=== PATIENT | male | born 1960 | race Caucasian/White ===

== ENCOUNTER → 2019-11-21 17:05 | Outpatient (CLI) | payer OTHER, SELFPAY ==
--- NOTE | ~2019-11-21 | XR_ITS ---
XR hand LT min 3V, XR wrist LT min 3V 11/21/2019 17:20 Indication: Chronic left hand and wrist pain Procedure: 3 views left hand and 4 views left wrist Comparison: No prior studies for comparison. Findings: There is osteoarthritis of the first carpometacarpal joint. Normal mineralization. There is radial carpal joint space narrowing. No acute fracture or traumatic malalignment. No focal soft tiss ue abnormality. No radiopaque foreign bodies. Impression: 1: Mild-moderate polyarticular osteoarthritis. Reviewed, dictated and finalized at location A. TENDER Impression: 1: Mild-moderate polyarticular osteoarthritis. Impression: 1: Mild-moderate polyarticular osteoarthritis.
== END ==
PROVIDERS: Visit Provider Plastic Surgery
DX: M19.042 Primary osteoarthritis, left hand (principal); M19.032 Primary osteoarthritis, left wrist
CPT/HCPCS: 73110; 73130

== ENCOUNTER 2019-12-19 01:26 | Day surgery (SDC) | payer OTHER, SELFPAY ==
[2019-12-11 15:35] VITALS: BMI 28.0
--- NOTE | 2019-12-18 19:02 | HP_ITS ---
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 HISTORY: The patient is 59. He injured the digit 2 years ago, carrying 6 x 6 x 12 foot beam, this rolled over on to his thumb on a hard surface, hyperextending the thumb. He never received any treatment for that. Recently, an MRI was done and this shows possible contusion of the left thumb, carpometacarpal joint at the trapezium and base of the metacarpal. There is osteophyte production and noted also was at least a partial tear of the deep aspect of the anterior oblique ligament. Plain x-rays of the hand reveal joint space narrowing of the 1st carpometacarpal joint. As a solution to this, I have recommended a trapezium resection arthroplasty with an Arthrex internal brace and the patient is going to have this done. He is aware that there may be nerve injury and may be a slow recovery. There could be wound healing problems. He may need extended therapy and may not end up with supple joint that he is hoping for. ALLERGIES: HE HAS NO KNOWN ALLERGIES TO MEDICATIONS. MEDICATIONS: His current medications are Lexapro and lamotrigine. SURGICAL HISTORY: He has a history of tonsillectomy and Lasix surgery and a vasectomy. He is a nonsmoker. REVIEW OF SYSTEMS: There is some hearing loss. FAMILY HISTORY: Noncontributory. SOCIAL HISTORY: Lives in [place]. He works for the [employer]. PHYSICAL EXAMINATION: GENERAL: He is 5 feet 9 inches, weighs 200 pounds. He is in no acute distress. HEENT: Unremarkable. CHEST: Clear to auscultation. HEART: Regular rate and rhythm by palpation. ABDOMEN: Soft, nontender. EXTREMITIES: Normal with the exception of the area of the left thumb. There is some crepitus around the CMC joint. In that area, it is painful. ASSESSMENT: Left first carpometacarpal joint osteoarthritis with anterior obliques ligament tear. PLAN: Trapezium resection arthroplasty with Arthrex internal brace under general anesthesia. D I MT: [facility]
[2019-12-19] VITALS (9 sets, daily range): BP systolic 103–146; BP diastolic 61–89; PULSE 56–77; RESP 12–18; TEMP 36.5; O2SAT 92–99; BMI 29.0
--- NOTE | ~2019-12-19 | XR_ITS ---
EXAMINATION: XR surgery orthopedic EXAM DATE: 12/19/2019 12:54 INDICATION: Left trapezium resection. TECHNIQUE: Fluoroscopy used during orthopedic left hand surgery performed by Dr. Perry Cruz MD . The DAP for this procedure was 4.8 cGycm2. FINDINGS: Portable fluoroscopic images obtained during left-sided trapezium resection. Correlate wi th procedure note. IMPRESSION: Fluoroscopy used during XR surgery orthopedic. Reviewed, dictated and finalized at location B. ESTATE VALUER
[2019-12-19] MEDS: LACTATED RINGERS 1,000 ML 30 ML IV CONT (08:35)
--- NOTE | 2019-12-19 08:40 | WPDANESEPPF ---
Anes - Initial Pre Proc Eval Procedure: Operation Date: 12/19/19 10:00 Proposed Procedures p Left Trapezium Resection Arthroplasty With Arthrex Internal Brace - Perry Cruz MD Date/Time: 12/19/19 08:40 Surgeon: Perry Cruz MD Pre Op Diagnosis: Chronic Pain AC Arthritis Left First CMC Joint Patient Data Age: 59 Gender: M Height: 1.75 m Weight: 86.18 kg Allergies Allergy/AdvReac Type Severity Reaction Status Date / Time No Known Allergies Allergy Mild Unverified 12/11/19 15:36 Home Medications Medication Instructions Recorded Confirmed Type escitalopram oxalate 20 mg tablet 20 mg PO QPM 10/01/19 12/11/19 History lamotrigine 100 mg tablet 100 mg PO QPM 10/01/19 12/11/19 History multivitamin 1 tablet PO DAILY 10/01/19 12/11/19 History omega-3 fatty acids 1,000 mg 4,000 mg PO DAILY cap 10/01/19 12/11/19 History capsule Patient hx anesthesia problems: none Family hx anesthesia problems: none PMFSH Past Medical History Medical History (Updated 12/19/19 @ 08:41 by Augustine Lambert MD) Allergies Arthritis Depression Fractures HLD (hyperlipidemia) HTN (hypertension) Measles Mumps Overweight (BMI 25.0-29.9) Surgical History Surgical History (Updated 10/01/19 @ 09:44 by Mary Cabrera CMA) H/O vasectomy Hx of LASIK Family History Family History (Updated 10/01/19 @ 09:44 by Mary Cabrera CMA) Mother Breast cancer Sibling Hypertension HLD (hyperlipidemia) Social History Social History (Updated 10/01/19 @ 13:57 by Mary Cabrera CMA) Smoking status: Never smoker Alcohol intake: current Anes - Eval Final PreProcedure Day of Procedure 12/19/19 08:40 Patient weight: overweight Heart: regular rate and rhythm Lungs: clear to auscultation and normal air movement Airway: Mallampati scale class II Neurological: alert and oriented Last oral intake: >/= 8 hours ASA classification: II Emergent: no Anesthetic plan: proceed Anesthesia type and monitoring: general GIVS Informed Consent: The patient's anesthetic plan and its attendant risks and benefits were discussed with the patient/family/POA. Questions were solicited and answers provided to the satisfaction of the patient/family/POA.
--- NOTE | 2019-12-19 11:08 | WPDHPUPDATE1 ---
History and Physical Update Update Date/Time: 12/19/19 11:08 History and Physical has been reviewed, including an updated exam of the patient. There are NO changes in the patient's condition. Risks, benefits, and alternatives have been discussed and questions answered. Patient agrees to proceed with procedure.
[2019-12-19] MEDS: ceFAZolin 2 GM/D5W 50 ML 2 GM/50 ML BAG IVPB (11:15)
--- NOTE | 2019-12-19 11:29 | P.OPB_ITS ---
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 Implants: Arthrex InternalBrace Anesthesia: GETA Surgeon: Perry Cruz MD High [employer] Forming Equipment Operator: Annalisa Pathology: none sent Complications: No immediate complications Condition: stable Disposition: PACU
[2019-12-19] MEDS: LIDO 1%/EPINEPHRINE 1:100,000 20 ML VIAL INFILTRATE (11:51)
--- NOTE | 2019-12-19 13:11 | PM.PROC ---
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 Description of procedure: The site was marked in preop. The patient was taken to the operating room placed supine on the operating table. A time-out was held and confirmed. He was given general endotracheal anesthesia. The extremity was prepped and draped in the usual fashion. The site was marked for the incision with a typical Jones approach. The tourniquet was inflated to 250 mmHg. A the site was locally infiltrated with 1% lidocaine with epinephrine. The incision was made as marked and the dissection was carried through the subcutaneous tissue noting cutaneous nerves. Two were identified 1 held in 1 direction the other the other direction. The radial artery was identified eventually. The the trapezial metacarpal joint was identified and the capsule incised longitudinally. Great deal of white synovitis type tissue was identified and trimmed away. The a specimens sent to pathology. With sharp and blunt dissection and the use of a osteotome and rongeur the trapezium was resected entirely. This was confirmed with C-arm image. The Arthrex internal brace was applied after identification of the radial base facet of the 2nd metacarpal. The C-wire was placed and the site confirmed with the C-arm image. The hole was over-drilled and the anchor was inserted. The 2nd hole was drilled across the base of the 1st metacarpal. And that anchor inserted over the bracing material. The capsule was repaired with 3-0 Vicryl suture the extensor tendons were not repositioned. The skin was closed with a running 5 0 nylon. Eight cc of 0.5% Marcaine plain were instilled into the cavity and in the subcutaneous tissue surrounding the incision. The usual bandage with a thumb spica splint was applied the patient is discharged from the operating room stable condition. The estimated blood loss was 15 milliliter. He was given 2 g of Ancef preop. The total tourniquet time was 70 minutes. Is being discharged home with instructions in wound care follow-up and a prescription for hydrocodone . Surgeon: Perry Cruz MD
--- NOTE | 2019-12-19 13:24 | SUR.PHASEI ---
1324: Report given to ANAM Gambino.
== END 2019-12-19 14:45 | disposition home or self-care (01) ==
PROVIDERS: PCP Internal Medicine; Visit Provider Plastic Surgery
PROC: (CPT 25447; principal; 2019-12-19 10:00)
DX: M18.12 Unilateral primary osteoarthritis of first carpometacarpal joint, left hand (principal); I10 Essential (primary) hypertension; E78.5 Hyperlipidemia, unspecified; F32.9 Major depressive disorder, single episode, unspecified
CPT/HCPCS: 25447; 88305; A9270; J0690; J1100; J1170; J2250; J2405; J2704; J3010; J7120

== ENCOUNTER 2020-01-05 10:02 | Emergency (ER) | payer OTHER, SELFPAY ==
[2020-01-05 10:16] VITALS: BP 143/100; PULSE 62; RESP 16; TEMP 36.7; O2SAT 99
--- NOTE | 2020-01-05 10:20 | ED.URI ---
HPI - URI/Sore Throat General Chief Complaint: Upper Respiratory Infection Stated Complaint: sinus congestion Time Seen by Provider: 01/05/20 10:20 Source: patient and RN notes reviewed History of Present Illness HPI Narrative: Patient is a 59-year-old male that presents the urgent care with complaints of sinus congestion and pressure for 4 days. Patient states he has not taken anything [id number] with the exception of 1 dose of ibuprofen. Patient states he has a lot of postnasal drainage which sometimes causes a sore throat. Patient denies any known fever, nausea, vomiting. Denies any coughing. Denies any history of sinus surgery or chronic sinusitis. No other acute complaints. No acute distress noted. Patient read the plan of care. Related Data Home Medications Medication Instructions Recorded Confirmed escitalopram oxalate 20 mg tablet 20 mg PO QPM 10/01/19 01/05/20 lamotrigine 100 mg tablet 100 mg PO QPM 10/01/19 01/05/20 multivitamin 1 tablet PO DAILY 10/01/19 01/05/20 omega-3 fatty acids 1,000 mg 4,000 mg PO DAILY cap 10/01/19 01/05/20 capsule Allergies Allergy/AdvReac Type Severity Reaction Status Date / Time No Known Allergies Allergy Mild Unverified 12/11/19 15:36 Review of Systems Review of Systems: Narrative: CONSTITUTIONAL: Denies fever, chills, or sweats. EYES: Denies visual changes, redness, or discharge. ENT: Reports of sinus pressure, congestion, mild sore throat and postnasal drainage CARDIOVASCULAR: Denies chest pain, palpitations, or edema. RESPIRATORY: Denies cough or dyspnea. GASTROINTESTINAL: Denies abdominal pain, nausea, vomiting, or diarrhea. GENITOURINARY: Denies dysuria or hematuria. SKIN: Denies rash or itching. MUSCULOSKELETAL: Denies back pain, joint pain, or myalgia. NEUROLOGIC: Denies headache, numbness, or weakness. All other systems reviewed are negative, except as documented in HPI. [facility] Past Medical History Medical History (Updated 01/05/20 @ 10:58 by SUNNY Khan) Allergies Arthritis Depression Fractures HLD (hyperlipidemia) HTN (hypertension) Measles Mumps Overweight (BMI 25.0-29.9) Surgical History Surgical History (Updated 10/01/19 @ 09:44 by Mary Cabrera CMA) H/O vasectomy Hx of LASIK Family History Family History (Updated 10/01/19 @ 09:44 by Mary Cabrera CMA) Mother Breast cancer Sibling Hypertension HLD (hyperlipidemia) Social History Social History (Updated 10/01/19 @ 13:57 by Mary Cabrera CMA) Smoking status: Never smoker Alcohol intake: current Comments At the time of my signature, I reviewed and agree with the nursing past medical, surgical, social, and family history. There is no relevant family history pertinent to the patient complaint. Exam Narrative: Exam Narrative: GENERAL: This is a well-nourished, well-developed patient, in no apparent distress. HEAD: normocephalic, atraumatic. Mild frontal sinus tenderness EYES: PERRL. Sclera clear/white. Vision is grossly intact. EARS: External ears normal, auditory canals clear and without drainage, TMs normal without perforation. Hearing grossly intact. NOSE: External nose normal with no obvious nasal discharge, nares without redness, no rhinorrhea. THROAT: Mucous membranes moist, posterior pharynx clear. Moderate postnasal drainage NECK: Neck supple CARDIOVASCULAR: Regular rate and rhythm without murmurs, gallops, or rubs. RESPIRATORY: Clear to auscultation. Breath sounds equal bilaterally. No wheezes, rales, or rhonchi. SKIN: warm, intact with no suspicious lesions or rash, good texture and turgor. NEURO: awake, alert, and oriented to person, place and time. There were no obvious focal neurologic abnormalities. EXTREMITIES: No clubbing, cyanosis, or edema. Course Vital Signs Vital signs: Vital Signs Temperature 98.1 F 01/05/20 10:16 Pulse Rate 62 01/05/20 10:16 Respiratory Rate 16 01/05/20 10:16 Blood Pressure 143/100 H 01/05/20 1
== END 2020-01-05 11:04 | disposition home or self-care (01) ==
PROVIDERS: Emergency Provider Nurse Practitioner Family; PCP Internal Medicine
DX: J32.9 Chronic sinusitis, unspecified (principal); M19.90 Unspecified osteoarthritis, unspecified site; F32.9 Major depressive disorder, single episode, unspecified; E78.5 Hyperlipidemia, unspecified; I10 Essential (primary) hypertension; Z98.52 Vasectomy status
CPT/HCPCS: 99213; G0463

== ENCOUNTER 2020-03-19 08:00 | Outpatient (RCR) | payer OTHER, SELFPAY ==
--- NOTE | 2020-01-07 10:21 | OTOPEVAL ---
OCCUPATIONAL THERAPY INITIAL EVALUATION 01/07/2020 Thank you for referring this patient to [facility]. Amador will benefit from skilled hand therapy 1x/week for 6 weeks for deficits outlined below. Please review, sign, date and return this plan of care DAVID. I agree with and certify that the following plan of care is medically necessary. Referring Physician Date Admitting Provider: Attending Provider: Perry Cruz MD Referring Provider: *OT Outpatient Evaluation Start: 01/07/20 08:40 Freq: Status: Active Protocol: Document 01/07/20 08:41 JOSSY (Rec: 01/07/20 10:20 JOSSY [email or web address]) Therapy Assessment Status Assessment Status Assessment Status Evaluation Outpatient Past Medical History Neurological History Hx Neurological Disorders No Significant History Cardiovascular History Hx Hypertension Yes Respiratory History Hx Respiratory Disorders No Significant History Gastrointestinal History Hx Gastrointestinal Disorders No Significant History Genitourinary History Hx Genitourinary Disorders No Significant History Musculoskeletal History Hx Arthritis Yes: LEFT FIRST CMC JOINT Hx Fractures Yes: L TIBIA Hematological History Hx Hematological Disorders No Significant History Endocrine History Hx Endocrine Disorders No Significant History HEENT History Hx Sinus Problems Yes: IMPROVED WITH ALLERGY SHOTS Hx Other HEENT Disorders Yes: BARROW- BILATERAL HEARING AIDS Integumentary History Hx Skin Disorders No Significant History Reproductive History Hx Other Reproductive Disorders Yes: VASECTOMY Psychosocial History Hx Depression Yes Pain History History of Any Previous or Ongoing No Significant History Instance of Pain Anesthesia History Hx Anesthesia Reactions No Significant History Evaluation Information Problem Diagnosis s/p (L) trapezium resection with Arthrex internal brace Onset 12/19/19 Subjective Information Amador reports that he began Query Text:As Reported By Patient/ weaning himself off the brace Family 2 weeks ago and has gone completely without it since 01/03/20. 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 Patient has been using compensatory techniques (1-handed) for dishes, buttons,
--- NOTE | 2020-02-19 09:12 | OTOPEVAL ---
OCCUPATIONAL THERAPY RE-EVALUATION AND PROGRESS REPORT 02/19/2020 Continued skilled OT indicated for ROM and strength deficits outlined below. MCP stiffness and thenar group weakness are causing suboptimal mechanics of the thumb with functional pinching. Continued OT indicated 1x/week for 4 additional weeks. Thank you for referring Amador Ochoa to [facility]. Please review, sign, date and return this plan of care DAVID. I agree with and certify that the following plan of care is medically necessary. Referring Physician Date Admitting Provider: Attending Provider: Perry Cruz MD Referring Provider: *OT Outpatient Re-Evaluation Evaluation Information Problem Diagnosis s/p (L) trapezium resection with Arthrex internal brace Onset 12/19/19 Additional Evaluation Detail Amador has been participating in outpatient hand therapy 1x/ week for 6 weeks. He is very compliant with all materials. Therapy has been focusing on AROM, PROM, and strengthening of the left wrist, hand, and thumb. Subjective Information Amador notes great improvement Query Text:As Reported By Patient/ in ROM and flexibility. He Family states that he still feels weak, however. For instance, he is unable to pinch a nail clipper with the left, shuffle a deck of cards, and use a lateral pinch to continuous pickling line pickler helper a stack of dinner plates. He does report increased use of the L hand with doing buttons, tying shoes, tying a tie, dishes, and turning door knobs. Pain Assessment Timing of Pain Assessment Timing of Pain Assessment Re-assessment Pain Scale Pain Scale Used Numeric (1 - 10) Self Report Pain Assessment Left Hand(s) Reported Pain Level 0 Lowest Pain Intensity 0 Greatest Pain Intensity 5 Other Pain Aggravating Factors Pinching, especially anything with weight or force Pain Relief Interventions Used By Exercise Patient Pain Score Pain Score 0: Self Report Upper Extremity Range of Motion Elbow/Forearm Range of Motion Left Forearm Supination - Active 85 Forearm Pronation - Active 85 Elbow/Forearm Range of Motion Comments Elbow flex/ext is WNL. (L) forearm AROM is symmetrical to the (R). Wrist Range of Motion Left Wrist Flexion - Active
--- NOTE | 2020-03-19 08:59 | OTOPEVAL ---
OCCUPATIONAL THERAPY DISCHARGE NOTE 03/19/2020 Amador has improved to normal limits with ROM and has made excellent progress with functional strength. Although he has some limitations with strength, he is independent with all strengthening materials and plans to continue to work on strengthening with graded resistive putty. No further skilled OT is indicated at this time. Thank you for this referral. Thank you for referring Amador Ochoa to [facility]. Please review, sign, date and return this D/C Note DAVID. I agree with and certify that the following plan of care is medically necessary. Referring Physician Date Referring Provider: ePrry Cruz MD *OT Outpatient Re-Evaluation & D/C Therapy Assessment Status Assessment Status Discharge Evaluation Information Diagnosis s/p (L) trapezium resection with Arthrex internal brace Onset 12/19/19 Additional Evaluation Detail Amador has been participating in outpatient hand therapy 1x/ week for 10 weeks. The past month has been focusing on strengthening and mechanics during functional pinching. Subjective Information Amador notes great improvement Query Text:As Reported By Patient/ in ROM, flexibility, and Family strength. He states that he still feels weak, particularly in pinching and gripping. For instance, he is unable to pinch a nail clipper with the left hand. He does note improvement with being able to greens picker a stack of dinner plates. Pain Assessment Timing of Pain Assessment Timing of Pain Assessment Re-assessment Pain Scale Pain Scale Used Numeric (1 - 10) Self Report Pain Assessment Left Hand(s) Reported Pain Level 0 Other Pain Description 0 Lowest Pain Intensity 0 Greatest Pain Intensity 4 Other Pain Aggravating Factors PROM, pinching Pain Score Pain Score 0: Self Report Upper Extremity Range of Motion Wrist Range of Motion Left Wrist Flexion - Active 65 Wrist Flexion - Passive 70 Wrist Extension - Active 75 Wrist Radial Deviation - Active 15 Wrist Radial Deviation - Passive 20 Wrist Ulnar Deviation - Active 40 Wrist Range of Motion Comments ROM measurements of the wrist remained unchanged since last re-evaluation. Measurements are WFL. Finger Range of Motion Left Reason Not Measured WNL/Left Thumb Range of Motion Left Thumb MCP Flexion - A
== END 2020-03-19 11:03 | disposition home or self-care (01) ==
LOC: ANHOT 08:00
PROVIDERS: PCP Internal Medicine; Visit Provider Plastic Surgery
DX: Z47.89 Encounter for other orthopedic aftercare (principal)
CPT/HCPCS: 97018; 97035; 97110; 97140; 97165; 97535

== ENCOUNTER 2025-05-30 15:24 | Outpatient (CLI) | payer OTHER, SELFPAY ==
--- OUTSIDE RECORDS SUMMARY | 2025-05-30 15:32 | XMS_ITS | Clinical Summary ---
Author Organization [facility] Address [address] [place] [id number] Care Team Providers Care Specimen Transporter Name Role Phone Unavailable Primary Care Provider Unavailabl e Social History Tobacco Use Types Packs/Day Years Used Date Smoking Tobacco: Never Assessed Sex and Gender Information Value Date Recorded Sex Assigned at Not on file Legal Sex Male 8:09 PM CDT Gender Identity Not on file Sexual Orientation Not on file Plan of Treatment Health Maintenance Due Date Last Done Comments Colorectal Cancer Screening Colonoscopy (10 Years) 1961 Annual Physical 1964 Hepatitis C 1979 DTaP, Tdap and Td Vaccines ( 1 - Tdap) 1980 Pneumococcal Vaccine: 50+ Ye ars (1 of 1 - PCV) 2011 Zoster Vaccines (1 of 2) 2011 COVID-19 Vaccine ( - 2023-2 5 season) 2024 RSV Immunization or 60+ Years (1 - 1-dose 75+ series) 2036 Meningococcal B Vaccine Aged Out No l onger eligible based on patient's age to complete this topic Meningococcal Vaccine Aged Out No cleo valdemar eligible based on patient's age to complete this topic RSV Immunizations Under 20 Months Aged Out No longer eligible based on patient's age to complete this topic
--- OUTSIDE RECORDS SUMMARY | 2025-05-30 15:32 | XMS_ITS | Clinical Summary ---
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 Role Phone Unavailable Primary Care Provider Unavailabl e Allergies No known active allergies Medications fish oil-dha-epa 1,200-144-216 mg capsule Take by mouth Active multivitamin capsule Take 1 capsule by mouth daily Active coenzyme Q10 200 mg capsule Take 1 capsule (200 mg total) by mouth daily Active loratadine (CLARITIN) 10 mg tablet Take 1 tablet (10 mg total) by mouth daily Active tamsulosin (FLOMAX) 0.4 mg extended release capsuleIndications: Benign prostatic hyperplasia with urinary frequency Take 1 capsule (0.4 mg total) by mouth daily 30 capsule 5 Active atorvastatin (LIPITOR) 20 mg tabletIndications:H yperlipidemia, unspecified hyperlipidemia type Take 1 tablet (20 mg total) by mouth nightly 90 tablet 1 5 Active Active Problems Problem Noted Date Diagnosed Date Recurrent major depressive disorder, in remissio n 04/10/2025 Assessment & Plan (04/10/2025 10:22 AM CDT): He was diagnosed w/ bipolar approximately in 2006. The patient states that he has a had manic episode to his knowledge He does endorse depression on and off throughout his life Has been off meds for 2 years, lexapro and lamictal History of recurrent SI 40+ years ago as a child. Denies SI. Denies anhedonia We will go off his medications and see how he does. He works in [employer]. He knows to reach out to us if he has any problems. Risk stratification done, low risk, 988 discussed Seasonal allergies 04/10/2025 Assessment & Plan (04/10/2025 7:52 AM CDT): Claritin 10mg Hyperlipidemia, unspecified 04/10/2025 Assessment & Plan (04/10/2025 10:22 AM CDT): Severe LDL elevation 2021 He has changed his diet significantly I will decrease his atorvastatin to 20 mg Elevated PSA 04/10/2025 Assessment & Plan (04/10/2025 10:22 AM CDT): The patient does not have any concerning systemic symptoms at this time. Given the substantial increase over the last 2 years however, we will refer him to Urology for further considerations. Latest Reference Range & Units 04/05/23 16:42 04/09/25 07:17 PSA <=5.40 ng/mL 1.74 8.46 (H) (H): Data is abnormally high Orders: tamsulosin (FLOMAX) 0.4 mg extended release capsule; Take 1 capsule (0.4 mg total) by mouth daily Ambulatory referral to Urology; Future No family history. Pretty significant hike. Asymptomatic His weight loss is explained by lifestyle changes. Benign prostatic hyperplasia with urinary freque ncy 04/10/2025 Assessment & Plan (04/10/2025 10:22 AM CDT): The patient does not have any concerning systemic symptoms at this time. Given the substantial increase over the last 2 years however, we will refer him to Urology for further considerations. Latest Reference Range & Units 04/05/23 16:42 04/09/25 07:17 PSA <=5.40 ng/mL 1.74 8.46 (H) (H): Data is abnormally high Orders: tamsulosin (FLOMAX) 0.4 mg extended release capsule; Take 1 capsule (0.4 mg total) by mouth daily Ambulatory referral to Urology; Future No family history. Pretty significant hike. Asymptomatic His weight loss is explained by lifestyle changes. Sensorineural hearing loss (SNHL) 04/17/2024 Encounters Date Type Department Care Team Description 05/21/[address] [phone] Maddi Padron MD Referral Request 05/08/2025 7:[address] [facility] [address] [place] [phone] Benign prostatic hyperplasia with urinary frequency; Elevated PSA; Hyperlipidemia, unspecified hyperlipidemia type 05/08/2025 Results Follow-Up [address] [phone] Michelle Bradford LPN PSA diagnostic, Lipid panel 04/21/[address] [phone] Flip Arriaga MD 04/10/2025 7:30 AM CDT Office Visit [address] [phone] Jed Barros MD Recurrent major depressive disorder, in remission (Primary Dx); Benign prostatic hyperplasia with urinary frequency; Elevated PSA; Hyperlipidemia, unspecified hyperlipidemia type; Seasonal allergies 04/10/2025 Letter (Out) [address] [phone] 04/09/2025 7:[address] [facility] [address] [place] [id number] Benign prostatic hyperplasia with urinary frequency; Hyperlipidemia, unspecified hyperlipidemia type; Screening for deficiency anemia 04/09/2025 Results Follow-Up [address] [phone] Sandra Ceballos PA PSA screen, Lipid panel, Comprehensive metabolic panel, Additional followed-up results: 3 from Last 3 Months Immunizations Immunization Administration Dates Next Due Influenza, Quadrivalent, Sussy l Culture-based MDCK, Preservative Free, Antibiotic Free, Intramuscular 08/07/2022 Influenza, Quadrivalent, Spl it, Preservative Free, Intramuscular 11/10/2021,08/22/2020 Influenza, Trivalent, Preser vative Free, Intramuscular 07/20/2024 Influenza, Unspecified 10/03/2023(Deferr ed: Patient Refused),07/23/2021 Moderna SARS-CoV-2 Monovalen t Vaccination (12+ YRS) 09/27/2021,09/27/2021 Tdap 03/30/2023 ZOSTER Recombinant 08/07/2022,04/07/2022 Surgical History Surgery Date Site/Laterality Comments TONSILLECTOMY 10/23/1962 - 10/22/1963 VASECTOMY 10/23/2000 - 10/22/2001 HAND SURGERY 10/23/2019 - 10/22/2020 MARCELL Medical History Medical History Date Comments Arthritis Hearing aid worn Plantar fasciitis Pneumonia Family History Medical History Relation Name Comments No Known Problems Brother 1 Diabetes Brother 2 Jarek Ochoa Hypertension Brother 2 Jarek Ochoa Obesity Brother 2 Jarek Ochoa Cancer Maternal Grandfather Perry Aliyah Leena Hypertension Maternal Grandfather Perry Aliyah Leena Cancer Maternal Grandmother Treva [place] Hypertension Maternal Grandmother Treva [place] Breast cancer Mother Cori Mishra Leena Cancer Mother Cori Mishra Leena Cataracts Paternal Grandmother Relation Name Status Comments Brother 1 Alive Brother 2 Jarek Ochoa Alive Father Maternal Grandfather Perry [place] Leena Maternal Grandmother Treva [place] Leena Mother Cori Mishra Leena Paternal Grandfather Paternal Grandmother Social History Tobacco Use Types Packs/Day Years Used Date Smoking Tobacco: Never Smokeless Tobacco: Never Tobacco Cessation:Counseling Given: Not Answered AUDIT-C Answer Date Recorded Q1: How often do you have a drink containing alc ohol? 2-4 times a month 04/10/2025 Q2: How many drinks containi ng alcohol do you have on a typical day when you are drinking? 1 or 2 04/10/2025 Q3: How often do you have si x or more drinks on one occasion? Never 04/10/2025 PHQ-2 Answer Date Recorded PHQ-2 Total Score (If total score is 3 or more points, staff should administer the PHQ-9) 0 04/10/2025 Sex and Gender Information Value Date Recorded Sex Assigned at Not on file Legal Sex Male 1:53 PM [employer] Gender Identity Not on file Sexual Orientation Not on file Obstetrics History Last Filed Vital Signs Vital Sign Reading Time Taken Comments Blood Pressure 118/80 04/10/2025 7:14 AM CDT Pulse 61 04/10/2025 7:14 AM CDT Temperature 36.6 C (97.9 F) 04/10/2025 7:14 AM CDT Respiratory Rate 16 04/10/2025 7:14 AM CDT Oxygen Saturation 98% 04/10/2025 7:14 AM CDT Inhaled Oxygen Concentration - - Weight 81.4 kg (179 lb 8 oz) 04/10/2025 7:14 AM CDT Height 175.3 cm (5' 9.02) 04/10/2025 7:14 AM CD T Body Mass Index 26.5 04/10/2025 7:14 AM CDT Plan of Treatment Health Maintenance Due Date Last Done Comments Hepatitis B Screening 1978 Regular Well Visit/Exam 18-64 06/05/2025 06/05/2024, 06/05/2024, 04/11/2023, Additional history exists Influenza Vaccine (#1) 2025 , 08/07/2022, 11/10/2021, Additional history exists Depression Screening 04/10/2026 04/10/2025, 12/09/2024, 06/05/2024, Additional history exists Colon Cancer Screening-Colonoscopy 12/13/2026 12/13/2021 Prostate Cancer Screening-PSA 05/08/2027 05/08/2025, 04/09/2025, 04/05/2023, Additional history exists DTaP/Tdap/Td Vaccine (2 - Td or Tdap) 03/30/2033 03/30/2023 Zoster Vaccine Completed 08/07/2022, 04/07/2022 Hepatitis C Screening Completed 04/05/2023 Covid-19 Vaccine Completed 07/20/2024, 01/2023, 04/07/2022, Additional history exists Pneumococcal vaccine <65 Aged Out No longer eligible based on patient's age to complete this topic Procedures Procedure Name Priority Date/Time Associated Diagnosis Comments LIPID PANEL Routine 05/08/2025 7:26 AM CDT Hyperlipidemia, unspecified hyperlipidemia type PSA DIAGNOSTIC Routine 05/08/2025 7:26 AM CDT Benign prostatic hyperplasia with urinary frequency Elevated PSA EGFR Routine 04/09/2025 7:17 AM CDT Hyperlipidemia, unspecified hyperlipidemia type DIFFERENTIAL AUTO Routine 04/09/2025 7:1 7 AM CDT Screening for deficiency anemia CBC WITH AUTO DIFFERENTIAL Routine 04/09/2025 7:17 AM CDT Screening for deficiency anemia COMPREHENSIVE METABOLIC PANEL Routine 04/09/2025 7:17 AM CDT Hyperlipidemia, unspecified hyperlipidemia type LIPID PANEL Routine 04/09/2025 7:17 AM CDT Hyperlipidemia, unspecified hyperlipidemia type PSA SCREEN Routine 04/09/2025 7:17 AM CDT Benign prostatic hyperplasia with urinary frequency HEPATITIS C ANTIBODY Routine 04/05/2023 4:42 PM CDT Need for hepatitis C screening test COLONOSCOPY Routine 12/13/2021 from Last 3 Months or Most Recently Relevant to Health Maintenance Results * (ABNORMAL) PSA diagnostic (05/08/2025 7:26 AM CDT) PSA-Total 9.01(H) <=5.40 ng/mL Comment: Interpretive Data AGE SEX REFERENCE INTERVAL 0 minutes-150 years Female None 0 minutes-49 years Male None 50-59 years Male 0-3.90 60-69 years Male 0-5.40 70-79 years Male 0-6.20 80-150 years Male 0-6.20 The Ivonne PSA Total assay procedure was used. Results from different manufacturers or methods may not be comparable. Serial testing should be performed using the same method. Current interpretive data last revised 22. Testing performed by: [facility], [address] [place] [address]., [id number] Blood 05/08/2025 7:26 AM CDT 05/08/2025 8:06 AM CDT us Jed Barros MD LAB BLOOD ORDERABLES Final Re sult GAEL PETERSON [address] [facility] Department [place] [address] * Lipid panel (05/08/2025 7:26 AM CDT) Cholesterol 125 30 - 199 mg/dL Comment: Interpretive Data Ages < or = 19 years Acceptable: <170 mg/dL Borderline high: 170-199 mg/dL High: >or= 200 mg/dL Ages > or = 20 years Desirable: <200 mg/dL Borderline high: 200-239 mg/dL High: >or= 240 mg/dL Literature References: 1. Expert Panel on Integrated Guidelines for Cardiovascular Health and Risk Reduction in Children and Adolescents. Pediatrics 2011;128:S213 2. NCEP Expert Panel. Circulation 2004;110:227 Current Interpretive Data was last revised on 2018. Testing performed by: [address] [address] Triglycerides 59 <=149 mg/dL GAEL Comment: Interpretive Data Ages < or = 9 years Acceptable: <75 mg/dL Borderline high: 75-99 mg/dL High: >or= 100 mg/dL Ages 10 to 20 years Acceptable: <90 mg/dL Borderline high: 90-129 mg/dL High: >or= 130 mg/dL Ages > or = 20 years Desirable: <150 mg/dL Borderline high: 150-199 mg/dL High: 200-499 mg/dL Very high: >or= 499 mg/dL Literature References: 1. Expert Panel on Integrated Guidelines for Cardiovascular Health and Risk Reduction in Children and Adolescents. Pediatrics 2011;128:S213 2. NCEP Expert Panel. Circulation 2004;110:227 Current Interpretive Data was last revised on 2018. Testing performed by: [address] [address] HDL 56 >=40 mg/dL GAEL Comment: Interpretive Data Ages < or = 19 years Acceptable: >45 mg/dL Borderline low: 40-45 mg/dL Low: <40 mg/dL Ages > or = 20 years Desirable: >or= 60 mg/dL Low: <40 mg/dL Literature References: 1. Expert Panel on Integrated Guidelines for Cardiovascular Health and Risk Reduction in Children and Adolescents. Pediatrics 2011;128:S213 2. NCEP Expert Panel. Circulation 2004;110:227 Current Interpretive Data was last revised on 2018. Testing performed by: [address] [address] LDL, calculated 56 <=129 mg/dL GAEL Comment: Interpretive Data Ages < or = 19 years Acceptable: <110 mg/dL Borderline high: 110-129 mg/dL High: >or= 130 mg/dL Ages > or = 20 years Optimal: <100 mg/dL Near optimal: 100-129 mg/dL Borderline high: 130-159 mg/dL High: >160 mg/dL Calculated using the Jovan LDL-C estimating equation. This equation was implemented on 2024. Prior to this date LDL-C was estimated using the Friedewald equation. Literature References: 1. Expert Panel on Integrated Guidelines for Cardiovascular Health and Risk Reduction in Children and Adolescents. Pediatrics 2011;128:S213 2. NCEP Expert Panel. Circulation 2004;110:227 3. Jovan Lorenz al. KOBI Cardiol. 2019February 20;5(5):540-548. doi: 10.1001/jamacardio.2020.0013 Current Interpretive Data was last revised on 2024. Testing performed by: [address] [address] Non-HDL Cholesterol 69 mg/dL GAEL Comment: Interpretive Data Ages < or = 19 years Acceptable: <120 mg/dL Borderline high: 120-144 mg/dL High: >145 mg/dL Ages > or = 20 years When triglycerides are >200 mg/dL, Non-HDL cholesterol is a secondary target of therapy with treatment goals that are 30 mg/dL greater than the LDL cholesterol target. Literature References: 1. Expert Panel on Integrated Guidelines for Cardiovascular Health and Risk Reduction in Children and Adolescents. Pediatrics 2011;128:S213 2. NCEP Expert Panel. Circulation 2004;110:227 Current Interpretive Data was last revised on 2018. Testing performed by: [facility], [address] [place] [address]., [address] Chol/HDL ratio 2 GAEL Comment:Testing performed by : [address] [address] Blood 05/08/2025 7:26 AM CDT 05/08/2025 8:06 AM CDT us Jed Barros MD LAB BLOOD ORDERABLES Final Re sult Performing Organization Address [facility]/ZIP Co de Phone Number GAEL [address] [facility] Department [place] [address] * eGFR (04/09/2025 7:17 AM CDT) eGFR >90 >=60 mL/min/1. 73 m2 Comment: Interpretive Data Reference Interval Normal >/= 90 mL/min/1.73m2 Mildly decreased* 60 - 89 mL/min/1.73m2 Mildly to moderately decreased 45 - 59 mL/min/1.73m2 Moderately to severely decreased 30 - 44 mL/min/1.73m2 Severely decreased 15 - 29 mL/min/1.73m2 Kidney Failure < 15 mL/min/1.73m2 *Relative to young adult level Estimated glomerular filtration rate is determined by the 2020 CKD-EPI equation recommended by the National Kidney Foundation (A Unifying Approach to GFR Estimation: Recommendations of the NKF-ASK Task Force on Reassessing the Inclusion of Race in Diagnosing Kidney Disease, JASN 2020). The CKD-EPI equation should not be used for patients with unstable renal function and has not been validated in children and those over 70. Current interpretive data was last reviewed 2021. Testing performed by: [facility], [address] [place] [address]., [address] Blood 04/09/2025 7:17 AM CDT 04/09/2025 7:42 AM CDT us Flip Arriaga MD LAB BLOOD ORDERABLES Final Result Performing Organization Address City/[facility]/ZIP Co de Phone Number GAEL [address] [facility] Department [place] [address] * Differential, auto (04/09/2025 7:17 AM CDT) Neutrophil abs 1.88 1.50 - 6.50 K/cumm Comment:Testing performed by : [address] [address] Imm gran abs 0.01 0.00 - 0.10 K/cumm GAEL Comment:Testing performed by : [address] [address] Lymphocyte abs 1.67 0.80 - 3.30 K/cumm GAEL Comment:Testing performed by : [address] [address] Monocyte abs 0.30 0.20 - 0.80 K/cumm GAEL Comment:Testing performed by : [address] [address] Eosinophil abs 0.03 0.00 - 0.50 K/cumm GAEL Comment:Testing performed by : [address] [address] Basophil abs 0.01 0.00 - 0.10 K/cumm GAEL Comment:Testing performed by : [address] [address] Neutrophil pct 48.1 % GAEL Comment: Interpretive Data Percent cell count reference ranges are not reported, since discordance with absolute values may lead to misinterpretation of CBC data. Current Interpretive Data was last revised on 2018. Testing performed by: [address] [address] Imm gran pct 0.3 % GAEL Comment: Interpretive Data Percent cell count reference ranges are not reported, since discordance with absolute values may lead to misinterpretation of CBC data. Current Interpretive Data was last revised on 2018. Testing performed by: [address] [address] Lymphocyte pct 42.8 % GAEL Comment: Interpretive Data Percent cell count reference ranges are not reported, since discordance with absolute values may lead to misinterpretation of CBC data. Current Interpretive Data was last revised on 2018. Testing performed by: [address] [address] Monocyte pct 7.7 % [facility] Comment: Interpretive Data Percent cell count reference ranges are not reported, since discordance with absolute values may lead to misinterpretation of CBC data. Current Interpretive Data was last revised on 2018. Testing performed by: [address] [address] Eosinophil pct 0.8 % [facility] Comment: Interpretive Data Percent cell count reference ranges are not reported, since discordance with absolute values may lead to misinterpretation of CBC data. Current Interpretive Data was last revised on 2018. Testing performed by: [address] [address] Basophil pct 0.3 % GAEL Comment: Interpretive Data Percent cell count reference ranges are not reported, since discordance with absolute values may lead to misinterpretation of CBC data. Current Interpretive Data was last revised on 2018. Testing performed by: [address] [address] Blood 04/09/2025 7:17 AM CDT 04/09/2025 7:42 AM CDT Flip Arriaga MD LAB BLOOD ORDERABLES Final Result Performing Organization Address City/State/[facility] Co de Phone Number [facility] [address] [facility] Department of Laboratories [place], [place] [id number] * (ABNORMAL) PSA screen (04/09/2025 7:17 AM CDT) PSA-Total 8.46(H) <=5.40 ng/mL Comment: Interpretive Data AGE SEX REFERENCE INTERVAL 0 minutes-150 years Female None 0 minutes-49 years Male None 50-59 years Male 0-3.90 60-69 years Male 0-5.40 70-79 years Male 0-6.20 80-150 years Male 0-6.20 The Ivonne PSA Total assay procedure was used. Results from different manufacturers or methods may not be comparable. Serial testing should be performed using the same method. Current interpretive data last revised 22. Testing performed by: [address] [address] Blood 04/09/2025 7:17 AM CDT 04/09/2025 7:42 AM CDT Flip Arriaga MD LAB BLOOD ORDERABLES Final Result [facility] [address] [facility] Department [place] [address] * (ABNORMAL) CBC with auto differential (04/09/2025 7:17 AM CDT) WBC 3.90 3.80 - 9.90 K/cumm Comment:Testing performed by : [address] [address] Hgb 13.9 13.0 - 17.5 g/dL GAEL Comment:Testing performed by : [address] [address] Hct 39.9 38.9 - 50.3 % GAEL Comment:Testing performed by : [address] [address] Plt 149(L) 150 - 400 K/cumm GAEL Comment:Testing performed by : [address] [address] MPV 10.5 9.1 - 12.3 fL GAEL Comment:Testing performed by : [address] [address] RBC 4.26(L) 4.30 - 5.80 M/cumm GAEL Comment:Testing performed by : [address] [address] MCV 93.7 81.3 - 96.4 fL GAEL Comment:Testing performed by : [address] [address] MCH 32.6 27.1 - 33.3 pg GAEL Comment:Testing performed by : [address] [address] MCHC 34.8 32.3 - 35.7 g/dL GAEL PETERSON Comment:Testing performed by : [address] [address] RDW CV 12.0 11.1 - 14.9 % GAEL PETERSON Comment:Testing performed by : [address] [address] RDW SD 41.5 35.7 - 48.1 fL GAEL PETERSON Comment:Testing performed by : [address] [address] NRBC abs 0.00 0.00 - 0.01 K/cumm GAEL PETERSON Comment:Testing performed by : [address] [address] Blood 04/09/2025 7:17 AM CDT 04/09/2025 7:42 AM CDT Flip Arriaga MD LAB BLOOD ORDERABLES Final Result GAEL [address] [facility] Department [place] [address] * Lipid panel (04/09/2025 7:17 AM CDT) Cholesterol 135 30 - 199 mg/dL Comment: Interpretive Data Ages < or = 19 years Acceptable: <170 mg/dL Borderline high: 170-199 mg/dL High: >or= 200 mg/dL Ages > or = 20 years Desirable: <200 mg/dL Borderline high: 200-239 mg/dL High: >or= 240 mg/dL Literature References: 1. Expert Panel on Integrated Guidelines for Cardiovascular Health and Risk Reduction in Children and Adolescents. Pediatrics 2011;128:S213 2. NCEP Expert Panel. Circulation 2004;110:227 Current Interpretive Data was last revised on 2018. Testing performed by: [address] [address] Triglycerides 61 <=149 mg/dL GAEL PETERSON Comment: Interpretive Data Ages < or = 9 years Acceptable: <75 mg/dL Borderline high: 75-99 mg/dL High: >or= 100 mg/dL Ages 10 to 20 years Acceptable: <90 mg/dL Borderline high: 90-129 mg/dL High: >or= 130 mg/dL Ages > or = 20 years Desirable: <150 mg/dL Borderline high: 150-199 mg/dL High: 200-499 mg/dL Very high: >or= 499 mg/dL Literature References: 1. Expert Panel on Integrated Guidelines for Cardiovascular Health and Risk Reduction in Children and Adolescents. Pediatrics 2011;128:S213 2. NCEP Expert Panel. Circulation 2004;110:227 Current Interpretive Data was last revised on 2018. Testing performed by: [address] [address] HDL 58 >=40 mg/dL GAEL Comment: Interpretive Data Ages < or = 19 years Acceptable: >45 mg/dL Borderline low: 40-45 mg/dL Low: <40 mg/dL Ages > or = 20 years Desirable: >or= 60 mg/dL Low: <40 mg/dL Literature References: 1. Expert Panel on Integrated Guidelines for Cardiovascular Health and Risk Reduction in Children and Adolescents. Pediatrics 2011;128:S213 2. NCEP Expert Panel. Circulation 2004;110:227 Current Interpretive Data was last revised on 2018. Testing performed by: [address] [address] LDL, calculated 64 <=129 mg/dL GAEL Comment: Interpretive Data Ages < or = 19 years Acceptable: <110 mg/dL Borderline high: 110-129 mg/dL High: >or= 130 mg/dL Ages > or = 20 years Optimal: <100 mg/dL Near optimal: 100-129 mg/dL Borderline high: 130-159 mg/dL High: >160 mg/dL Calculated using the Jovan LDL-C estimating equation. This equation was implemented on 2024. Prior to this date LDL-C was estimated using the Friedewald equation. Literature References: 1. Expert Panel on Integrated Guidelines for Cardiovascular Health and Risk Reduction in Children and Adolescents. Pediatrics 2011;128:S213 2. NCEP Expert Panel. Circulation 2004;110:227 3. Jovan Lomas et al. KOBI Cardiol. 2020 February 20;5(5):540-548. doi: 10.1001/jamacardio.2020.0013 Current Interpretive Data was last revised on 2024. Testing performed by: [address] [address] Non-HDL Cholesterol 77 mg/dL GAEL PETERSON Comment: Interpretive Data Ages < or = 19 years Acceptable: <120 mg/dL Borderline high: 120-144 mg/dL High: >145 mg/dL Ages > or = 20 years When triglycerides are >200 mg/dL, Non-HDL cholesterol is a secondary target of therapy with treatment goals that are 30 mg/dL greater than the LDL cholesterol target. Literature References: 1. Expert Panel on Integrated Guidelines for Cardiovascular Health and Risk Reduction in Children and Adolescents. Pediatrics 2011;128:S213 2. NCEP Expert Panel. Circulation 2004;110:227 Current Interpretive Data was last revised on 2018. Testing performed by: [address] [address] Chol/HDL ratio 2 GAEL Comment:Testing performed by : [address] [address] Blood 04/09/2025 7:17 AM CDT 04/09/2025 7:42 AM CDT Filp Arriaga MD LAB BLOOD ORDERABLES Final Result GAEL [address] [facility] Department of Laboratories [place], [place] [id number] * Comprehensive metabolic panel (04/09/2025 7:17 AM CDT) Sodium 141 135 - 145 mmol/L Comment:Testing performed by : [address] [address] Potassium, pl 4.0 3.3 - 4.9 mmol/L GAEL PETRESON Comment:Testing performed by : [address] [address] Chloride 105 97 - 110 mmol/L GAEL Comment:Testing performed by : [address] [address] CO2 27 22 - 32 mmol/L GAEL PETERSON Comment:Testing performed by : [address] [address] Anion gap 9 2 - 15 mmol/L GAEL Comment:Testing performed by : [address] [address] BUN 13 6 - 25 mg/dL GAEL Comment:Testing performed by : [address] [address] Creatinine 0.80 0.80 - 1.30 mg/dL GAEL Comment:Testing performed by : [address] [address] Glucose 97 70 - 199 mg/dL GAEL Comment: Interpretive Data Fasting glucose >/= 126 mg/dl is diagnostic for diabetes. Fasting is defined as no caloric intake for at least 8 hours. Fasting glucose between 100 mg/dl to 125 mg/dl is diagnostic of prediabetes. In a patient with classic symptoms of hyperglycemia or hyperglycemic crisis, a random glucose >/= 200 mg/dl is diagnostic for diabetes. In the absence of unequivocal hyperglycemia, results should be confirmed by repeat testing. The classification and Diagnosis of Diabetes Diabetes Care 202; 46: S19-S40. Current interpretive data was last revised 2022. Testing performed by: [address] [address] Calcium 9.6 8.5 - 10.3 mg/dL GAEL Comment:Testing performed by : [address] [address] Bilirubin, total 0.7 0.1 - 1.2 mg/dL GAEL Comment:Testing performed by : [address] [address] Protein, pl 6.7 6.5 - 8.5 g/dL GAEL Comment:Testing performed by : [address] [address] Albumin 4.4 3.5 - 5.0 g/dL GAEL Comment:Testing performed by : [address] [address] Alk phos 60 40 - 130 Units/L GAEL Comment:Testing performed by : [address] [address] ALT 27 7 - 55 Units/L GAEL Comment:Testing performed by : [facility], [address] [place] [address]., [address] AST 27 10 - 50 Units/L GAEL Comment:Testing performed by : [facility], [address] [place] [address]., [address] Blood 04/09/2025 7:17 AM CDT 04/09/2025 7:42 AM CDT Flip Arriaga MD LAB BLOOD ORDERABLES Final Result Performing Organization Address [facility] de Phone Number [place] [id number] [facility] [place] [address] * Hepatitis C antibody (04/05/2023 4:42 PM CDT) Hep C Ab Nonreactive Nonreactive GAEL Comment: Interpretive Data Nonreactive: Antibodies to HCV not detected. Does NOT exclude the possibility of recent exposure to HCV. Equivocal: Equivocal for HCV antibodies. Supplemental molecular testing will be automatically performed to determine infection status in accordance with current CDC screening recommendations. Reactive: Positive for HCV antibodies. This may represent current or past HCV infection. Supplemental molecular testing will be automatically performed to determine current infection status in accordance with current CDC screening recommendations. Interpretive data was last revised on 2020. Blood 04/05/2023 4:42 PM CDT 04/05/2023 6:25 PM CDT Flip Arriaga MD LAB MICROBIOLOGY - G ENERAL ORDERABLES Final Result Performing Organization Address [facility] Co de Phone Number [facility] [address] [facility] [place] [address] * Colonoscopy (12/13/2021) Anatomical Region Laterality Modality Other Ellyn Bird MD ENDOSCOPY PROCEDURES Emily l Result from Last 3 Months or Most Recently Relevant to Health Maintenance Insurance [facility]
--- OUTSIDE RECORDS SUMMARY | 2025-05-30 15:32 | XMS_ITS | Encounter Summary ---
Author Organization [facility] Address [address] [place] [address] Phone Care Team Providers Care Furnishings Conservator Name Role Phone Flip Arriaga MD Primary Care Provid er Encounter Details Date Type Department Care Team (Latest Contact Info) Description 04/17/2024 Orders Only HIGH OS HAND/WRIST Scanning, Provider Social History Tobacco Use Types Packs/Day Years Used Date Smoking Tobacco: Never Cigarettes Smokeless Tobacco: Never AUDIT-C Answer Date Recorded Q1: How often do you have a drink containing alc ohol? Monthly or less 03/30/2023 Q2: How many drinks containi ng alcohol do you have on a typical day when you are drinking? 1 or 2 03/30/2023 Q3: How often do you have si x or more drinks on one occasion? 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 Gender Identity Not on file Sexual Orientation Not on file documented as of this encounter Plan of Treatment Not on file documented as of this encounter Procedures Procedure Name Priority Date/Time Associated Diagnosis Comments SCAN - RADIOLOGY/IMAGING 04/17/2024 documented in this encounter Results * SCAN - RADIOLOGY/IMAGING (04/17/2024) Anatomical Region Laterality Modality Other us Provider Scanning Edited Result - Final documented in this encounter Visit Diagnoses Not on filedocumented in this encounter Care Teams Furnishings Conservator Relationship Specialty Start Date End Date Flip Arriaga MD [address] [place] [address] PCP - General Family Medicine 10/08/21 05/07/25 documented as of this encounter
--- OUTSIDE RECORDS SUMMARY | 2025-05-30 15:33 | XMS_ITS | Clinical Summary ---
Author Organization [facility] Address [address] [place] [address] Care Team Providers Care Field Geologist Name Role Phone Unavailable Primary Care Provider Unavailabl e Immunizations Immunization Administration Dates Next Due Covid-19, Mrna, Lnp-s, PF, 5 0 mcg/0.25 mL dose (Moderna) 09/27/2021 Social History Tobacco Use Types Packs/Day Years Used Date Smoking Tobacco: Never Assessed Sex and Gender Information Value Date Recorded Sex Assigned at Not on file Legal Sex Male 11:57 PM CDT Gender Identity Not on file Sexual Orientation Not on file Plan of Treatment Health Maintenance Due Date Last Done Comments Hepatitis C Virus (HCV) Screening 1961 TdaP Immunization 1961 Cologuard 2006 Colonoscopy 2006 Colorectal Cancer Screening 2006 Immunochemical Fecal Occult Blood 2006 Pneumococcal Immunization (50+ years) (1 of 1 - PCV) 2011 Zoster Immunization (1 of 2) 2011 SARS-COV-2 Immunization ( - season) 2024 04/07/2022, 09/27/2021, 12/18/2020, Additional history exists Influenza Immunization (#1) 2025 08/22/2020 Respiratory Syncytial Virus (RSV) Immunization (Adult) (1 - 1-dose 75+ series) 2036 Hepatitis B Immunization Aged Out No longer eligible based on patient's age to complete this topic Human Papillomavirus (HPV) Immunization Aged Out No longer eligible based on patient's age to complete this topic Meningococcal Immunization (ACWY) Aged Out No longer eligible based on patient's age to complete this topic Rotavirus Immunization Aged Out No lo nger eligible based on patient's age to complete this topic
--- OUTSIDE RECORDS SUMMARY | 2025-05-30 15:33 | XMS_ITS | Encounter Summary ---
Author Organization [facility] Healthcare Address [address] [place] [address] Care Team Providers Care Gate Attendant Name Role Phone Unavailable Primary Care Provider Unavailabl e Encounter Details Date Type Department Care Team (Late st Contact Info) Description 05/08/2025 Results Follow-Up [facility] Medical Group Family Medicine [address] [phone] Michelle Bradford LPN PSA diagnostic, Lipid panel Social History Tobacco Use Types Packs/Day Years Used Date Smoking Tobacco: Never Smokeless Tobacco: Never AUDIT-C Answer Date Recorded [...] on file 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 Gender Identity Not on file Sexual Orientation Not on file documented as of this encounter Miscellaneous Notes * Telephone Encounter - Deanna Olivas - 05/14/2025 9:03 AM CDT Created letter mailed out 05/14/2025 * Result Encounter Note - Michelle Bradford LPN - 05/13/2025 3:19 PM CDT LM x3 please send letter * Result Encounter Note - Michelle Bradford LPN - 05/12/2025 10:27 AM CDT LM, awaiting return call * Telephone Encounter - Michelle Bradford LPN - 05/08/2025 12:47 PM CDT LM, awaiting return call ----- Message from Jed Barros MD sent at 05/08/2025 9:44 AM CDT ----- Could we please call the patient to see if he is seeing Urology at an outside facility? If he is let us be proactive and fax them a copy of my last note as well as copy of recent labs. Please also let the patient know that we did inadvertently draw 2 sets of lipid panels within a short amount of time. The 2nd 1 should not have been drawn, this must have been a computer error that I was not able to catch. Let me know if the patient is seeing Urology soon ----- Message ----- From: Interface, Lab Results In Sent: 05/08/2025 8:54 AM CDT To: Jed Barros MD documented in this encounter Plan of Treatment Not on file documented as of this encounter Visit Diagnoses Not on filedocumented in this encounter
== END 2025-05-30 15:25 | disposition home or self-care (01) ==
PROVIDERS: PCP Family Medicine; Visit Provider Urology
DX: R97.20 Elevated prostate specific antigen [PSA] (principal)
CPT/HCPCS: 87086

== ENCOUNTER 2025-06-03 02:44 | Day surgery (SDC) | payer OTHER, SELFPAY ==
[2025-05-30 09:03] VITALS: BMI 26.2
--- NOTE | 2025-05-30 09:12 | PC.NURSE ---
Report to the Outpatient Waiting Room, entrance under the green pavilion located off [facility], at time _1115_ on date _[id number]_. Planned Procedure Time: _115pm_.? Time changes happen often and if your time is changed the preop area will call you the afternoon before. - You and your visitor will be asked to self-screen and do not enter if you have any COVID symptoms. Please call surgeon if you need to reschedule. - A mask is optional within the hospital at this time. Patients may have clear liquids (water, carbonated beverages, clear teas, apple juice) until 3 hours prior to surgery with a maximum of 20 ounces. - No food from midnight until time of surgery and no smoking, or chewing tobacco (or any form of nicotine). No chewing gum, candy or mints. Take only the following medications with a SIP of water on the morning of surgery: ___None____ DO NOT STOP ANY OF YOUR OTHER PRESCRIPTION MEDICATIONS PRIOR TO SURGERY EXCEPT THE FOLLOWING Hold all vitamins and supplements for 3 days per anesthesiologist. Medications to discontinue per physician Date to take last dose Please no make-up, nail romanian, hairspray, perfume, deodorant, or body powder the day of surgery.? No jewelry (including any body piercings) or valuables the day of surgery, leave them at home.? Please take a shower or bath the night before, or the morning of, surgery with an antibacterial soap.? Wear comfortable, loose fitting clothing.? - Jewelry must be removed prior to entering the operating room.? Rings and piercings that are not removed may be cut off. - The hospital will not accept responsibility for valuables.? - Please leave all valuables, including medications, at home the day of surgery. If you are going home after surgery, a licensed otr owner operator truck driver must drive you home.? - NO public transportation without another adult if you receive anesthesia. - We recommend that an adult stay with you for 24 hours following discharge. - We also recommend that you do not drive, make important decision, drink alcoholic beverages, or take any drugs that were not prescribed by your health care provider for at least 24 hours after your discharge time. Follow any additional instructions given to you from your surgeon. Telephone instructions given to __Amador__and asked if any additional questions and then verbalized understanding. Patient advised to call surgeon office or pre surgery nurse liaison [phone] if any additional questions.
--- OUTSIDE RECORDS SUMMARY | 2025-06-03 03:17 | XMS_ITS | Encounter Summary ---
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
--- OUTSIDE RECORDS SUMMARY | 2025-06-03 03:17 | XMS_ITS | Encounter Summary ---
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
--- OUTSIDE RECORDS SUMMARY | 2025-06-03 03:17 | XMS_ITS | Clinical Summary ---
Author Organization [facility] Address [address] [place] [address] Care Team Providers Care Food Service Attendant Name Role Phone Unavailable Primary Care [...]
--- OUTSIDE RECORDS SUMMARY | 2025-06-03 03:17 | XMS_ITS | Clinical Summary ---
Author Organization [address] Address [address] [place] [address] Care Team Providers Care Oncologist Name Role Phone Flip Arriaga MD Primary Care Provid er Allergies No known active allergies Medications fish [...] see how he does. 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 He knows to reach out to us [...] Type Department Care Team Description 05/21/[address] [phone] Maddi Padron MD Referral Request 05/08/2025 7:10 AM CDT Lab [facility] [address] [place] [address] Benign prostatic hyperplasia with urinary frequency; Elevated PSA; Hyperlipidemia, unspecified hyperlipidemia type 05/08/2025 Results Follow-Up [address] [phone] Michelle Bradford LPN PSA diagnostic, Lipid panel 04/21/[address] [phone] Flip Arriaga MD 04/10/2025 7:30 AM CDT Office Visit [address] [phone] Jed Barros MD Recurrent major depressive disorder, in remission (Primary Dx); Benign prostatic hyperplasia with urinary frequency; Elevated PSA; Hyperlipidemia, unspecified hyperlipidemia type; Seasonal allergies 04/10/2025 Letter (Out) [address] [phone] 04/09/2025 7:10 AM CDT Lab [facility] [address] [place] [address] Benign prostatic hyperplasia with urinary frequency; Hyperlipidemia, unspecified hyperlipidemia type; Screening for deficiency anemia 04/09/2025 Results Follow-Up [address] [phone] Sandra Ceballos PA PSA screen, [...] - 10/22/2001 HAND SURGERY 10/23/2019 - 10/22/2020 SAUR[facility]HIK Medical History Medical History Date Comments Arthritis Hearing aid worn Plantar fasciitis Pneumonia Family History Medical History Relation Name Comments No Known Problems Brother 1 Diabetes Brother 2 Jarek Ochoa Hypertension Brother 2 Jarek Ochoa Obesity Brother 2 Jarek Ochoa Cancer Maternal Grandfather Perry Fletchero Leena Hypertension Maternal Grandfather Perry Fletchero Leena Cancer Maternal Grandmother Trevashruthi [place] Hypertension Maternal Grandmother Treva [place] Breast cancer Mother Cori Stern Cancer Mother Cori Stern Cataracts Paternal Grandmother Relation Name Status Comments Brother 1 Alive Brother 2 Jarek Ochoa Alive Father Maternal Grandfather Perry Ly Leena Maternal Grandmother Treva [place] Leena Mother Cori Bowert Paternal Grandfather Paternal Grandmother Social History Tobacco [...] on file 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 Testing performed by: [facility], [address] [place] [address]., [address] Blood 05/08/2025 7:26 AM CDT 05/08/2025 8:06 AM CDT us Jed Barros MD LAB BLOOD ORDERABLES Final Re sult GAEL [address] [facility] [place] [address] * Lipid panel (05/08/2025 7:26 AM CDT) [...] last revised on 2018. Testing performed by: [address] [address] Triglycerides 59 <=149 mg/dL GAEL Comment: Interpretive [...] last revised on 2018. Testing performed by: [address] [address] HDL 56 >=40 mg/dL GAEL Comment: Interpretive [...] last revised on 2018. Testing performed by: [facility], [address] [place] [address]., [address] LDL, calculated 56 <=129 mg/dL GAEL Comment: [...] last revised on 2024. Testing performed by: [facility], [address] [place] [address]., [address] Non-HDL Cholesterol 69 mg/dL GAEL Comment: Interpretive [...] last revised on 2018. Testing performed by: [address] [address] Chol/HDL ratio 2 GAEL PETERSON Comment:Testing performed by : [address] [address] Blood 05/08/2025 7:26 AM CDT 05/08/2025 8:06 AM CDT us Jed Barros MD LAB BLOOD ORDERABLES Final Re sult GAEL PETERSON [address] [facility] [place] [address] * eGFR (04/09/2025 7:17 AM [...] was last reviewed 2021. Testing performed by: [address] [address] Blood 04/09/2025 7:17 AM CDT 04/09/2025 7:42 AM CDT us Flip Arriaga MD LAB BLOOD ORDERABLES Final Result GAEL [address] [facility] [place] [address] * Differential, auto (04/09/2025 7:17 AM CDT) Neutrophil abs 1.88 1.50 - 6.50 K/cumm Comment:Testing performed by : [address] [address] Imm gran abs 0.01 0.00 - 0.10 K/cumm GAEL Comment:Testing performed by : [address] [address] Lymphocyte abs 1.67 0.80 - 3.30 K/cumm GAEL Comment:Testing performed by : [address] [address] Monocyte abs 0.30 0.20 - 0.80 K/cumm GAEL Comment:Testing performed by : [address] [address] Eosinophil abs 0.03 0.00 - 0.50 K/cumm GAEL Comment:Testing performed by : [address] [address] Basophil abs 0.01 0.00 - 0.10 K/cumm [facility] Comment:Testing performed by : [address] [address] Neutrophil pct 48.1 % GAEL Comment: Interpretive Data Percent cell count reference ranges are not reported, since discordance with absolute values may lead to misinterpretation of CBC data. Current Interpretive Data was last revised on 2018. Testing performed by: [address] [address] Imm gran pct 0.3 % GAEL Comment: Interpretive Data Percent cell count reference ranges are not reported, since discordance with absolute values may lead to misinterpretation of CBC data. Current Interpretive Data was last revised on 2018. Testing performed by: [address] [address] Lymphocyte pct 42.8 % GAEL Comment: Interpretive Data Percent cell count reference ranges are not reported, since discordance with absolute values may lead to misinterpretation of CBC data. Current Interpretive Data was last revised on 2018. Testing performed by: [address] [address] Monocyte pct 7.7 % [facility] Comment: Interpretive Data Percent cell count reference ranges are not reported, since discordance with absolute values may lead to misinterpretation of CBC data. Current Interpretive Data was last revised on 2018. Testing performed by: [address] [address] Eosinophil pct 0.8 % GAEL Comment: Interpretive Data Percent cell count reference ranges are not reported, since discordance with absolute values may lead to misinterpretation of CBC data. Current Interpretive Data was last revised on 2018. Testing performed by: [address] [address] Basophil pct 0.3 % GAEL Comment: Interpretive Data Percent cell count reference ranges are not reported, since discordance with absolute values may lead to misinterpretation of CBC data. Current Interpretive Data was last revised on 2018. Testing performed by: [address] [address] Blood 04/09/2025 7:17 AM CDT 04/09/2025 7:42 AM CDT Flip Arriaga MD LAB BLOOD ORDERABLES Final Result Performing Organization Address City/State/[facility] Co de Phone Number [facility] [address] [facility] [place] [address] * (ABNORMAL) PSA screen (04/09/2025 7:17 AM [...] data last revised 22. Testing performed by: [address] [address] Blood 04/09/2025 7:17 AM CDT 04/09/2025 7:42 AM CDT Flip Arriaga MD LAB BLOOD ORDERABLES Final Result [facility] [address] [facility] [place] [address] * (ABNORMAL) CBC with auto differential (04/09/2025 7:17 AM CDT) WBC 3.90 3.80 - 9.90 K/cumm Comment:Testing performed by : [address] [address] Hgb 13.9 13.0 - 17.5 g/dL GAEL Comment:Testing performed by : [address] [address] Hct 39.9 38.9 - 50.3 % GAEL Comment:Testing performed by : [address] [address] Plt 149(L) 150 - 400 K/cumm GAEL Comment:Testing performed by : [address] [address] MPV 10.5 9.1 - 12.3 fL GAEL Comment:Testing performed by : [address] [address] RBC 4.26(L) 4.30 - 5.80 M/cumm GAEL Comment:Testing performed by : [address] [address] MCV 93.7 81.3 - 96.4 fL GAEL Comment:Testing performed by : [address] [address] MCH 32.6 27.1 - 33.3 pg GAEL PETERSON Comment:Testing performed by : [address] [address] MCHC 34.8 32.3 - 35.7 g/dL GAEL PETERSON Comment:Testing performed by : [address] [address] RDW CV 12.0 11.1 - 14.9 % GAEL PETERSON Comment:Testing performed by : [address] [address] RDW SD 41.5 35.7 - 48.1 fL GAEL PETERSON Comment:Testing performed by : [address], [place]., [address] NRBC abs 0.00 0.00 - 0.01 K/cumm GAEL PETERSON Comment:Testing performed by : [address] [address] Blood 04/09/2025 7:17 AM CDT 04/09/2025 7:42 AM CDT Flip Arriaga MD LAB BLOOD ORDERABLES Final Result GAEL [address] [facility] [place] [address] * Lipid panel (04/09/2025 7:17 AM CDT) [...] last revised on 2018. Testing performed by: [address] [address] Triglycerides 61 <=149 mg/dL GAEL PETERSON Comment: [...] last revised on 2018. Testing performed by: [address] [address] HDL 58 >=40 mg/dL GAEL Comment: Interpretive [...] last revised on 2018. Testing performed by: [facility], [address] [place] [address]., [address] LDL, calculated 64 <=129 mg/dL GAEL Comment: [...] last revised on 2024. Testing performed by: [address] [address] Non-HDL Cholesterol 77 mg/dL GAEL PETERSON Comment: [...] last revised on 2018. Testing performed by: [address] [address] Chol/HDL ratio 2 GEAL PETERSON Comment:Testing performed by : [address] [address] Blood 04/09/2025 7:17 AM CDT 04/09/2025 7:42 AM CDT Flip Arriaga MD LAB BLOOD ORDERABLES Final Result GAEL [address] [facility] [place] [address] * Comprehensive metabolic panel (04/09/2025 7:17 AM CDT) Sodium 141 135 - 145 mmol/L Comment:Testing performed by : [address] [address] Potassium, pl 4.0 3.3 - 4.9 mmol/L GAEL PETERSON Comment:Testing performed by : [address] [address] Chloride 105 97 - 110 mmol/L GAEL PETERSON Comment:Testing performed by : [address] [address] CO2 27 22 - 32 mmol/L [facility] Comment:Testing performed by : [address] [address] Anion gap 9 2 - 15 mmol/L [facility] Comment:Testing performed by : [address], [place]., [address] BUN 13 6 - 25 mg/dL [facility] Comment:Testing performed by : [address], [place]., [address] Creatinine 0.80 0.80 - 1.30 mg/dL [facility] Comment:Testing performed by : [address], [place]., [address] Glucose 97 70 - 199 mg/dL [facility] Comment: Interpretive Data Fasting glucose >/= 126 [...] classification and Diagnosis of Diabetes Diabetes Care 2021; 46: S19-S40. Current interpretive data was last revised 2022. Testing performed by: [address] [address] Calcium 9.6 8.5 - 10.3 mg/dL [facility] Comment:Testing performed by : [address] [address] Bilirubin, total 0.7 0.1 - 1.2 mg/dL [facility] Comment:Testing performed by : [address] [address] Protein, pl 6.7 6.5 - 8.5 g/dL [facility] Comment:Testing performed by : [address] [address] Albumin 4.4 3.5 - 5.0 g/dL GAEL Comment:Testing performed by : [address] [address] Alk phos 60 40 - 130 Units/L GAEL Comment:Testing performed by : [facility], [address] [place] [address]., [address] ALT 27 7 - 55 Units/L GAEL Comment:Testing performed by : [address] [address] AST 27 10 - 50 Units/L GAEL Comment:Testing performed by : [facility], [address] [place] [address]., [address] Blood 04/09/2025 7:17 AM CDT 04/09/2025 7:42 AM CDT Flip Arriaga MD LAB BLOOD ORDERABLES Final Result Performing Organization Address [facility] de Phone Number [facility] [address] [facility] [place] [address] * Hepatitis C antibody (04/05/2023 4:42 PM [...] ENERAL ORDERABLES Final Result Performing Organization Address City/[facility] Co de Phone Number [facility] [place] [address] * Colonoscopy (12/13/2021) Anatomical Region Laterality Modality Other Historical Provider ENDOSCOPY PROCEDURES Emily l Result from Last 3 Months or Most Recently Relevant to Health Maintenance Insurance [facility] Care Teams Oncologist Relationship Specialty Start Date End Date Arriaga, Flip Ronan, MD [address] [place] [address] PCP - General Family Medicine 06/02/25
--- OUTSIDE RECORDS SUMMARY | 2025-06-03 03:17 | XMS_ITS | Clinical Summary ---
Author Organization [facility] Address [address] [place] [address] Care Team Providers Care Front End Architect Name Role Phone Unavailable Primary Care Provider [...]
[2025-06-03] MEDS: LACTATED RINGERS 1,000 ML 30 ML IV CONT (11:15)
--- NOTE | 2025-06-03 12:02 | WPDHPUPDATE1 ---
History and Physical Update Update Date/Time: 06/03/25 12:02 History and Physical has been reviewed, including an updated exam of the patient. There are NO changes in the patient's condition. Risks, benefits, and alternatives have been discussed and questions answered. Patient agrees to proceed with procedure.
[2025-06-03 12:35] VITALS: BP 124/74; PULSE 42; TEMP 36.9; O2SAT 100; BMI 25.7
--- NOTE | 2025-06-03 13:10 | S_PTH ---
PATIENT: Amador Ochoa LOC: [facility] U#:[id number] AGE/SX: 64/M ROOM: RE06/03/[address]: Isreal KahnMD : 1960 BED: DIS: 06/03/2025 SPEC #: [id number] RECD: 06/03/25 13:57 STATUS: TIESHA REJavier #: [id number] APOLLO: 06/03/25 13:[address]: Criss,Isreal Hart DEPT: [facility] Surgical RECD BY: Taz Dejesus ENTERED: 06/03/25 13:59 SP TYPE: Surgical OTHR DR: Flip ArriagaMD Tissues: A - Prostate Bx B - Prostate Bx C - Prostate Bx D - Prostate Bx E - Prostate Bx F - Prostate Bx G - Prostate Bx H - Prostate Bx I - Prostate Bx J - Prostate Bx K - Prostate Bx L - Prostate Bx M - Prostate Bx Procedures: Unstained Slides Hematoxylin and Eosin Stain Prostate Biopsy
--- NOTE | 2025-06-03 13:17 | WPDANESEPPF ---
Anes - Initial Pre Proc Eval Procedure: Operation Date: 06/03/25 13:15 Proposed Procedures p Transrectal Ultrasound Fusion Guided Prostate Biopsy - Isreal Kahn MD Date/Time: 06/03/25 13:17 Surgeon: Isreal Kahn MD Pre Op Diagnosis: elevated psa Patient Data Age: 64 Gender: M Height: 1.75 m Weight: 79.05 kg Last Vital Signs Temp 98.4 F 06/03/25 12:35 Pulse 42 L 06/03/25 12:35 BP 124/74 06/03/25 12:35 Pulse Ox 100 06/03/25 12:35 O2 Del Method Room Air 06/03/25 12:35 Allergies Allergy/AdvReac Type Severity Reaction Status Date / Time No Known Allergies Allergy Mild Verified 06/03/25 12:34 Home Medications ?Medication ?Instructions ?Recorded ?Confirmed ?Type multivitamin 1 tablet PO DAILY 10/01/19 05/30/25 History omega-3 fatty acids 1,000 mg 4,000 mg PO DAILY 10/01/19 05/30/25 History capsule (Fish Oil Concentrate) atorvastatin 20 mg tablet 20 mg PO QPM 05/30/25 05/30/25 History coenzyme Q10 30 mg capsule (Co 30 mg PO DAILY 05/30/25 05/30/25 History Q-10) tamsulosin 0.4 mg capsule 0.4 mg PO QPM 05/30/25 05/30/25 History Patient hx anesthesia problems: none Family hx anesthesia problems: none Results Review: All pre-operative results and documents have been reviewed as part of the pre-operative evaluation. [facility] Past Medical History Medical History Overweight (BMI 25.0-29.9) Arthritis Mumps Measles Fractures Depression HTN (hypertension) HLD (hyperlipidemia) Allergies Surgical History Surgical History Hx of LASIK H/O vasectomy Family History Family History Mother Breast cancer Sibling Hypertension HLD (hyperlipidemia) Social History Social History Smoking status: Never smoker Alcohol intake: current Alcohol use details: occasionally Substance use: never Living arrangements: with family Spiritual care concerns: No Anes - Eval Final PreProcedure Day of Procedure 06/03/25 13:17 Patient weight: overweight Lungs: normal air movement Airway: Mallampati scale class II Neurological: alert and oriented Last oral intake: >/= 8 hours ASA classification: II Emergent: no Anesthetic plan: proceed Anesthesia type and monitoring: general GIVS and standard monitoring Results Review: All pre-operative results and documents have been reviewed as part of the pre-operative evaluation. Hyperlipidemia, overall active, no cp or sob w 1-2 fos. Informed Consent: The patient's anesthetic plan and its attendant risks and benefits were discussed with the patient/family/POA. Questions were solicited and answers provided to the satisfaction of the patient/family/POA.
[2025-06-03] MEDS: ceFAZolin 2 GM in SODIUM CHLORIDE 0.9% IV 50 ML 100 ML IVPB (13:22)
--- NOTE | 2025-06-03 13:43 | W.PM.PROC2 ---
Procedure Note - Detailed Date of Procedure 06/03/25 Pre-op Diagnosis elevated psa Post-op Diagnosis Same Procedure Performed uronav us and prostate biopsy Surgeon Isreal Kahn MD Anesthesia General Description of Procedure Patient was taken to the operative suite correctly identified. Once anesthesia was obtained he was placed in decubitus position. Transrectal ultrasound was performed. The MRI image was fused to the ultrasound machine. Three cores were taken from the region of interest. Twelve standard cores were then taken. He tolerated procedure well without any complications and was taken recovery stable condition. He will call for path results in 1 week. This completes dictation. Please send a copy of op note to my office Estimated Blood Loss 0 Drains No Packing No Pathology Yes Complications No immediate complications Condition Stable Disposition PACU
[2025-06-03 13:47] VITALS: BP 121/80; PULSE 67; RESP 12; O2SAT 98
[2025-06-03 14:17] VITALS: BP 128/86; PULSE 66; RESP 18
== END 2025-06-03 14:26 | disposition home or self-care (01) ==
PROVIDERS: PCP Family Medicine; Visit Provider Urology
PROC: (CPT 55700; principal; 2025-06-03 13:15)
DX: C61 Malignant neoplasm of prostate (principal); D02.21 Carcinoma in situ of right bronchus and lung; R97.20 Elevated prostate specific antigen [PSA]; E78.5 Hyperlipidemia, unspecified; I10 Essential (primary) hypertension; F32.A Depression, unspecified; M19.90 Unspecified osteoarthritis, unspecified site; Z98.890 Other specified postprocedural states; Z80.3 Family history of malignant neoplasm of breast
CPT/HCPCS: 76872; 55700; J0690; G0416; J2003; J2704; J3010; J7120

== ENCOUNTER 2025-06-26 12:34 | Outpatient (CLI) | payer OTHER, SELFPAY ==
--- NOTE | ~2025-06-26 | PE_ITS ---
EXAMINATION: PET_PETPSMAST_PT DATE: 06/26/2025 15:27 INDICATION: Prostate cancer TECHNIQUE: 5.868 mCi of Illucix Ga-68([id number]) was administered i.v. Low dose computed tomography (CT) images were acquired from the base of the brain to the base of the brain to the proximal thighs for attenuation correction and anatomic localization. Positron emission tomography (PET) images were acquired in the same distribution beginning 50 minutes after injection. Images including fused PET/CT images were reconstructed in axial, coronal, and sagittal planes. Automated exposure control technique was employed. The dose-length product was 882.40mGy-cm. COMPARISON: None FINDINGS: Head/neck: Typical pattern of symmetric physiologic increased activity in the lacrimal, parotid and submandibular glands as well as along the mucosa of the nasal and oral cavities, pharynx and hypopharynx. No pathologically enlarged cervical lymphadenopathy or suspicious foci of increased uptake in the visualized head or neck. Chest: Lungs are clear with no suspicious nodules, pneumonia, pulmonary edema or pleural effusion. Cardiomegaly. Atherosclerotic coronary artery calcific lesion. Small pericardial effusion. Thoracic aorta is normal in caliber. No pathologically enlarged or PSMA avid thoracic lymphadenopathy. Abdomen/pelvis/proximal thighs: Physiologic renal accumulation and excretion of activity in the kidneys, bladder and along portions of ureters. Prostatomegaly measuring 4.5 x 4.5 cm without evident foci of abnormal activity. Normal degree and slightly heterogenous pattern of increased uptake throughout the liver and spleen without radiologic correlate or dominant PSMA avid lesion. The gallbladder, pancreas and bilateral adrenal glands are normal. Moderate uptake scattered throughout the bowels with typical duodenal and proximal jejunal predominance and without radiologic correlate, also likely physiologic. No other abnormal foci of increased uptake or pathologically enlarged lymphadenopathy in the abdomen, pelvis or proximal thighs. Musculoskeletal: Few small foci of likely skin contamination along the skin surface at the volar aspect of the right forearm and clip along the dorsum of the right hand. Moderate cervical, thoracic and lumbar spondylosis. No suspicious lytic, blastic or abnormally PSMA avid bone lesions. IMPRESSION: 1. Prostatomegaly without evident foci of abnormal uptake to suggest primary malignancy. There are also no other lesions suspicious for metastatic disease. Reviewed, dictated and finalized at location A. IMPRESSION: 1. Prostatomegaly without evident foci of abnormal uptake to suggest primary ma lignancy. There are also no other lesions suspicious for metastatic disease.
--- OUTSIDE RECORDS SUMMARY | 2025-06-26 12:48 | XMS_ITS | Encounter Summary ---
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
--- OUTSIDE RECORDS SUMMARY | 2025-06-26 12:50 | XMS_ITS | Clinical Summary ---
Author Organization [facility] Address [address] [place] [address] Care Team Providers Care Separations Scientist Name Role Phone Unavailable Primary Care Provider [...]
--- OUTSIDE RECORDS SUMMARY | 2025-06-26 12:50 | XMS_ITS | Encounter Summary ---
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
--- OUTSIDE RECORDS SUMMARY | 2025-06-26 12:50 | XMS_ITS | Clinical Summary ---
Author Organization [address] Address [address] [place] [id number] Care Team Providers Care Refined Syrup Operator Name Role Phone Flip Arriaga MD Primary [...] Type Department Care Team Description 05/21/[address] [address] Maddi Padron MD Referral Request 05/08/2025 7:10 AM CDT Lab [facility] [address] [place] [address] Benign prostatic hyperplasia with urinary frequency; Elevated PSA; Hyperlipidemia, unspecified hyperlipidemia type 05/08/2025 Results Follow-Up [address] [phone] Michelle Bradford LPN PSA diagnostic, Lipid panel 04/21/[address] [address] Flip Arriaga MD 04/10/2025 7:30 AM CDT Office Visit [address] [phone] Jed Barros MD Recurrent major depressive disorder, in remission (Primary Dx); Benign prostatic hyperplasia with urinary frequency; Elevated PSA; Hyperlipidemia, unspecified hyperlipidemia type; Seasonal allergies 04/10/2025 Letter (Out) [address] [phone] 04/09/2025 7:10 AM CDT Lab [facility] [address] [place] [address] Benign prostatic hyperplasia with urinary frequency; Hyperlipidemia, unspecified hyperlipidemia type; Screening for deficiency anemia 04/09/2025 Results Follow-Up [address] [phone] Sandra Ceballos PA PSA screen, [...] Motley Everhar t Hypertension Maternal Grandmother Treva Mantachie Everhar t Breast cancer Mother Cori Stern [...] on file 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 Testing performed by: [facility], [address] [place] [address]., [address] Blood 05/08/2025 7:26 AM CDT 05/08/2025 8:06 AM CDT us Jed Barros MD LAB BLOOD ORDERABLES Final Re sult GAEL [address] [facility] Department [place] [address] * Lipid panel (05/08/2025 7:26 AM CDT) [...] last revised on 2018. Testing performed by: [address] [address] Triglycerides 59 <=149 mg/dL GAEL Comment: Interpretive [...] last revised on 2018. Testing performed by: [address] [address] HDL 56 >=40 mg/dL GAEL Comment: Interpretive [...] last revised on 2018. Testing performed by: [facility], [address] [place] [address]., [address] LDL, calculated 56 <=129 mg/dL GAEL Comment: [...] last revised on 2024. Testing performed by: [facility], [address] [place] [address]., [address] Non-HDL Cholesterol 69 mg/dL GAEL Comment: Interpretive [...] last revised on 2018. Testing performed by: [address] [address] Chol/HDL ratio 2 GAEL PETERSON Comment:Testing performed by : [address] [address] Blood 05/08/2025 7:26 AM CDT 05/08/2025 8:06 AM CDT us Jed Barros MD LAB BLOOD ORDERABLES Final Re sult GAEL PETERSON [address] [facility] Department [place] [address] * eGFR (04/09/2025 7:17 AM [...] was last reviewed 2021. Testing performed by: [address] [address] Blood 04/09/2025 7:17 AM CDT 04/09/2025 7:42 AM CDT us Flip Arriaga MD LAB BLOOD ORDERABLES Final Result GAEL [address] [facility] Department [place] [address] * Differential, auto (04/09/2025 7:17 AM CDT) Neutrophil abs 1.88 1.50 - 6.50 K/cumm Comment:Testing performed by : [address] [address] Imm gran abs 0.01 0.00 - 0.10 K/cumm GAEL Comment:Testing performed by : [address] [address] Lymphocyte abs 1.67 0.80 - 3.30 K/cumm GAEL Comment:Testing performed by : [address] [address] Monocyte abs 0.30 0.20 - 0.80 K/cumm GAEL Comment:Testing performed by : [address] [address] Eosinophil abs 0.03 0.00 - 0.50 K/cumm GAEL Comment:Testing performed by : [address] [address] Basophil abs 0.01 0.00 - 0.10 K/cumm [facility] Comment:Testing performed by : [address] [address] Neutrophil pct 48.1 % GAEL Comment: Interpretive Data Percent cell count reference ranges are not reported, since discordance with absolute values may lead to misinterpretation of CBC data. Current Interpretive Data was last revised on 2018. Testing performed by: [address] [address] Imm gran pct 0.3 % GAEL Comment: Interpretive Data Percent cell count reference ranges are not reported, since discordance with absolute values may lead to misinterpretation of CBC data. Current Interpretive Data was last revised on 2018. Testing performed by: [address] [address] Lymphocyte pct 42.8 % GAEL Comment: Interpretive Data Percent cell count reference ranges are not reported, since discordance with absolute values may lead to misinterpretation of CBC data. Current Interpretive Data was last revised on 2018. Testing performed by: [address] [address] Monocyte pct 7.7 % [facility] Comment: Interpretive Data Percent cell count reference ranges are not reported, since discordance with absolute values may lead to misinterpretation of CBC data. Current Interpretive Data was last revised on 2018. Testing performed by: [address] [address] Eosinophil pct 0.8 % GAEL Comment: Interpretive Data Percent cell count reference ranges are not reported, since discordance with absolute values may lead to misinterpretation of CBC data. Current Interpretive Data was last revised on 2018. Testing performed by: [address] [address] Basophil pct 0.3 % GAEL Comment: Interpretive Data Percent cell count reference ranges are not reported, since discordance with absolute values may lead to misinterpretation of CBC data. Current Interpretive Data was last revised on 2018. Testing performed by: [address] [address] Blood 04/09/2025 7:17 AM CDT 04/09/2025 7:42 AM CDT Flip Arriaga MD LAB BLOOD ORDERABLES Final Result Performing Organization Address City/State/[facility] Co de Phone Number [facility] [place] [address] [facility] Department [place] [address] * (ABNORMAL) PSA screen (04/09/2025 7:17 AM [...] data last revised 22. Testing performed by: [address] [address] Blood 04/09/2025 7:17 AM CDT 04/09/2025 7:42 AM CDT Flip Arriaga MD LAB BLOOD ORDERABLES Final Result [facility] [place] [address] [facility] Department [place] [address] * (ABNORMAL) CBC with auto differential (04/09/2025 7:17 AM CDT) WBC 3.90 3.80 - 9.90 K/cumm Comment:Testing performed by : [address] [address] Hgb 13.9 13.0 - 17.5 g/dL GAEL Comment:Testing performed by : [address] [address] Hct 39.9 38.9 - 50.3 % GAEL Comment:Testing performed by : [address] [address] Plt 149(L) 150 - 400 K/cumm GAEL Comment:Testing performed by : [address] [address] MPV 10.5 9.1 - 12.3 fL GAEL Comment:Testing performed by : [address] [address] RBC 4.26(L) 4.30 - 5.80 M/cumm GAEL Comment:Testing performed by : [address] [address] MCV 93.7 81.3 - 96.4 fL GAEL Comment:Testing performed by : [address] [address] MCH 32.6 27.1 - 33.3 pg GAEL PETERSON Comment:Testing performed by : [address] [address] MCHC 34.8 32.3 - 35.7 g/dL GAEL PETERSON Comment:Testing performed by : [address] [address] RDW CV 12.0 11.1 - 14.9 % GAEL PETERSON Comment:Testing performed by : [address] [address] RDW SD 41.5 35.7 - 48.1 fL GAEL PETERSON Comment:Testing performed by : [address], [place]., [address] NRBC abs 0.00 0.00 - 0.01 K/cumm GAEL PETERSON Comment:Testing performed by : [address] [address] Blood 04/09/2025 7:17 AM CDT 04/09/2025 7:42 AM CDT Flip Arriaga MD LAB BLOOD ORDERABLES Final Result GAEL [address] [facility] Department [place] [address] * Lipid panel (04/09/2025 7:17 AM CDT) [...] last revised on 2018. Testing performed by: [address] [address] Triglycerides 61 <=149 mg/dL GAEL PETERSON Comment: [...] last revised on 2018. Testing performed by: [address] [address] HDL 58 >=40 mg/dL GAEL Comment: Interpretive [...] last revised on 2018. Testing performed by: [facility], [address] [place] [address]., [address] LDL, calculated 64 <=129 mg/dL GAEL Comment: [...] last revised on 2024. Testing performed by: [address] [address] Non-HDL Cholesterol 77 mg/dL GAEL PETERSON Comment: [...] last revised on 2018. Testing performed by: [address] [address] Chol/HDL ratio 2 GAEL PETERSON Comment:Testing performed by : [address] [address] Blood 04/09/2025 7:17 AM CDT 04/09/2025 7:42 AM CDT Flip Arriaga MD LAB BLOOD ORDERABLES Final Result GAEL [address] [facility] Department [place] [address] * Comprehensive metabolic panel (04/09/2025 7:17 AM CDT) Sodium 141 135 - 145 mmol/L Comment:Testing performed by : [address] [address] Potassium, pl 4.0 3.3 - 4.9 mmol/L GAEL PETERSON Comment:Testing performed by : [address] [address] Chloride 105 97 - 110 mmol/L GAEL PETERSON Comment:Testing performed by : [address] [address] CO2 27 22 - 32 mmol/L [facility] Comment:Testing performed by : [address] [address] Anion gap 9 2 - 15 mmol/L [facility] Comment:Testing performed by : [address], [place]., [address] BUN 13 6 - 25 mg/dL [facility] Comment:Testing performed by : [address], [place]., [address] Creatinine 0.80 0.80 - 1.30 mg/dL [facility] Comment:Testing performed by : [address], [place]., [address] Glucose 97 70 - 199 mg/dL [facility] Comment: Interpretive Data Fasting glucose >/= 126 [...] was last revised 2022. Testing performed by: [address] [address] Calcium 9.6 8.5 - 10.3 mg/dL [facility] Comment:Testing performed by : [address] [address] Bilirubin, total 0.7 0.1 - 1.2 mg/dL [facility] Comment:Testing performed by : [address] [address] Protein, pl 6.7 6.5 - 8.5 g/dL [facility] Comment:Testing performed by : [address] [address] Albumin 4.4 3.5 - 5.0 g/dL GAEL Comment:Testing performed by : [address] [address] Alk phos 60 40 - 130 Units/L GAEL Comment:Testing performed by : [facility], [address] [place] [address]., [address] ALT 27 7 - 55 Units/L GAEL Comment:Testing performed by : [address] [address] AST 27 10 - 50 Units/L GAEL Comment:Testing performed by : [facility], [address] [place] [address]., [address] Blood 04/09/2025 7:17 AM CDT 04/09/2025 7:42 AM CDT Flip Arriaga MD LAB BLOOD ORDERABLES Final Result Performing Organization Address [facility] de Phone Number [facility] [address] [facility] [place] [address] * Hepatitis C antibody (04/05/2023 4:42 PM [...] ENERAL ORDERABLES Final Result Performing Organization Address City/[facility] Co de Phone Number [facility] [place] [address] * Colonoscopy (12/13/2021) Anatomical Region Laterality Modality Other Historical Provider ENDOSCOPY PROCEDURES Emily l Result from Last 3 Months or Most Recently Relevant to Health Maintenance Insurance [facility] Care Teams Refined Syrup Operator Relationship Specialty Start Date End Date Arriaga, Flip Ronan, MD [address] [place] [address] PCP - General Family Medicine 06/02/25
== END 2025-06-26 12:35 | disposition home or self-care (01) ==
PROVIDERS: PCP Family Medicine; Visit Provider Urology
DX: C61 Malignant neoplasm of prostate (principal); N40.0 Benign prostatic hyperplasia without lower urinary tract symptoms
CPT/HCPCS: 78815; A9596